=== PATIENT | female | born 1980 | race Asian ===

== ENCOUNTER 2018-09-24 08:40 | Emergency (ER) | payer OTHER ==
[~2018-09-24] VITALS: Ht 167.6 cm; Wt 58.2 kg
[2018-09-24 08:46] VITALS: BP 121/65; PULSE 94; RESP 20; Ht 167.6 cm; Wt 58.2 kg
[2018-09-24] MEDS ORDERED: AMOX1TAB10 PO (09:33)
[2018-09-24] MEDS ORDERED: ACET500C5 PO (09:33)
[2018-09-24] MEDS ORDERED: IBUP800T48 PO (09:33)
--- NOTE | 2018-09-24 09:59 | ERD ---
ER Documentation Chief Complaint Chief Complaint Complains of left ear pain since last night HPI 38-year-old female presenting with pain to the left ear. Patient took Tylenol for she states the pain is persistent for the last 2 days. Has had a runny nose and cough. Denies medical problems. Denies fever. NKDA. Surgical history C- section. Social history denies ROS All systems reviewed and are negative except as per history of present illness. Medications Home Meds Active Scripts Acetaminophen* (Tylophen*) 500 Mg Capsule, 2 CAP PO Q8H PRN for PAIN AND OR ELEVATED TEMP, #20 CAP Prov:DONNA YIP PA-C 09/24/18 Ibuprofen* (Motrin*) 800 Mg Tab, 800 MG PO Q6, #30 TAB Prov:DONNA YIP PA-C 09/24/18 Amoxicillin/Potassium Clav (Amox-Clav 875-125 mg Tablet) 875-125 mg Tab, 1 TAB PO BID for 7 Days, #14 TAB Prov:DONNA YIP PA-C 09/24/18 Allergies Allergies: Coded Allergies: No Known Allergy (Unverified , 09/24/18) FmHx Family History: No diabetes, No coronary disease, No other Physical Exam Vitals Vital Signs Date Temp Pulse Resp B/P (MAP) Pulse Ox O2 O2 Flow FiO2 Time Delivery Rate 09/24/18 97.8 94 20 121/65 98 08:46 (83) Physical Exam GENERAL: The patient is well-appearing, well-nourished, in no acute distress HEENT: Atraumatic. Conjunctivae are pink. Pupils equal, round, and reactive to light. There is no scleral icterus. Erythema and purulence noted behind the left TM. Mild bulging with no perforation.. Oropharynx clear. No nystagmus or photophobia. NECK: C-spine is soft and supple. There is no meningismus. There is no cervical lymphadenopathy. CHEST: Clear to auscultation bilaterally. There are no rales, wheezes or rhonchi. HEART: Regular rate and rhythm. No murmurs, clicks, rubs or gallops. Results 24 hrs Current Medications Medications Dose Sig/Farrukh Start Time Status Last (Trade) Ordered Route PRN Stop Time Admin Dose Reason Admin 875 mg ONCE ONCE 09/24/18 Amoxicillin/ PO 10:00 Clavulanate 09/24/18 10:01 Potassium (Augmentin) Ibuprofen 800 mg ONCE ONCE 09/24/18 09/24/18 (Motrin) PO 10:00 09:45 09/24/18 10:01 Procedures/MDM ER course: Ibuprofen and Augmentin daily. MDM: 38-year-old female presents with findings consistent with otitis media. Patient was treated with oral antibiotics. I have low suspicion for pneumonia. I have low suspicion for mastoiditis or sepsis. Patient is discharged stricter precautions and told to follow-up with primary care within 1-2 days for close evaluation. Patient is told symptoms change or worsen to return immediately to the ER. All questions answered at discharge Departure Diagnosis: Primary Impression: Left ear pain Condition: Stable Patient Instructions: Otitis Media, Abx Tx (Adult) Referrals: [facility] YOU HAVE RECEIVED A MEDICAL SCREENING EXAM AND THE RESULTS INDICATE THAT YOU DO NOT HAVE A CONDITION THAT REQUIRES URGENT TREATMENT IN THE EMERGENCY DEPARTMENT. FURTHER EVALUATION AND TREATMENT OF YOUR CONDITION CAN WAIT UNTIL YOU ARE SEEN IN YOUR DOCTORS OFFICE WITHIN THE NEXT 1-2 DAYS. IT IS YOUR RESPONSIBILITY TO MAKE AN APPOINTMENT FOR FOLOW-UP CARE. IF YOU HAVE A PRIMARY DOCTOR --you should call your primary doctor and schedule an appointment IF YOU DO NOT HAVE A PRIMARY DOCTOR YOU CAN CALL OUR PHYSICIAN REFERRAL HOTLINE AT IF YOU CAN NOT AFFORD TO SEE A PHYSICIAN YOU CAN CHOSE FROM THE FOLLOWING [facility] [address] [facility] [facility] [address] [facility] [facility] [address] [facility] [facility] [facility] [address] [facility]. [facility] [address] [facility]. [employer] [address] Additional Instructions: FOLLOW UP WITH YOUR PRIMARY CARE PHYSICIAN TOMORROW.Return to this facility if you are not improving as expected. DONNA YIP PA-C Sep 24, 2018 09:59
[2018-09-24] MEDS ORDERED: IBUPROFEN 800 MG TAB PO ONE (10:00)
[2018-09-24] MEDS ORDERED: AMOXICILLIN/CLAV 875 MG TAB PO ONE (10:00)
== END 2018-09-24 10:30 | disposition home or self-care (01) ==
LOC: FTE 08:40
DX: H66.92 Otitis media, unspecified, left ear (principal)
CPT/HCPCS: Z7502; Z7610; 99283